=== PATIENT | female | born 1970 | race Caucasian/White ===

== ENCOUNTER 2018-04-20 10:14 | Emergency (ER) | payer OTHER ==
[~2018-04-20] VITALS: Ht 162.6 cm; Wt 72.6 kg
[~2018-04-20 10:14] MED LIST: AMBIEN5 MG; INTESTINEX680 MG PO; OSEL75CA PO; PAMELOR10 MG; PROTONIX20 MG PO; TUSSI PRES-B L120 M1 PO; ZANTAC; [UNRECOGNIZED DRUG - OTHER]
== END 2018-04-20 16:53 | disposition home or self-care (01) ==
LOC: ER 10:14
DX: R07.89 Other chest pain (principal); K31.84 Gastroparesis

== ENCOUNTER 2018-07-03 09:36 | Emergency (ER) | payer OTHER ==
[~2018-07-03] VITALS: Ht 157.5 cm; Wt 71.2 kg
[2018-07-03] MEDS ORDERED: ATACAND32 MG (10:37)
[2018-07-03] MEDS ORDERED: ZANTAC300 MG PO (10:38)
[2018-07-03] MEDS ORDERED: SYMBALTA PO (10:38)
[2018-07-03] MEDS ORDERED: REGLAN5 MG/5 ML PO (10:39)
[2018-07-03] MEDS ORDERED: INTESTINEX680 M1 PO (15:53)
== END 2018-07-03 16:31 | disposition home or self-care (01) ==
LOC: ER 09:36
DX: R19.7 Diarrhea, unspecified (principal)

== ENCOUNTER 2018-10-29 10:45 | Emergency (ER) | payer OTHER ==
[~2018-10-29] VITALS: Ht 157.5 cm; Wt 71.2 kg
[~2018-10-29 10:45] MED LIST changes: +ATACAND32 MG; +INTESTINEX680 M1 PO; +REGLAN5 MG/5 ML PO; +SYMBALTA PO; +ZANTAC300 MG PO
[2018-10-29] MEDS ORDERED: DEXILANT60 MG (11:03)
[2018-10-29] MEDS ORDERED: PEPCID AC20 MG PO (17:26)
== END 2018-10-29 17:51 | disposition home or self-care (01) ==
LOC: ER 10:45
DX: S20.212A Contusion of left front wall of thorax, initial encounter (principal); S20.211A Contusion of right front wall of thorax, initial encounter; W18.39XA Other fall on same level, initial encounter; Y93.89 Activity, other specified; Y92.89 Other specified places as the place of occurrence of the external cause; Y99.8 Other external cause status; K29.70 Gastritis, unspecified, without bleeding

== ENCOUNTER 2018-12-17 16:55 | Emergency (ER) | payer OTHER ==
[~2018-12-17] VITALS: Ht 157.5 cm; Wt 71.7 kg
[~2018-12-17 16:55] MED LIST changes: +DEXILANT60 MG; +PEPCID AC20 MG PO
[2018-12-17] MEDS ORDERED: ZOLOFT50 MG (17:12)
[2018-12-17] MEDS ORDERED: MEDROLPACK PO (21:19)
[2018-12-17] MEDS ORDERED: SKELAXIN800 MG PO (21:19)
== END 2018-12-17 21:58 | disposition home or self-care (01) ==
LOC: ER 16:55
DX: S30.0XXA Contusion of lower back and pelvis, initial encounter (principal); M54.41 Lumbago with sciatica, right side; W06.XXXA Fall from bed, initial encounter; Y93.89 Activity, other specified; Y92.092 Bedroom in other non-institutional residence as the place of occurrence of the external cause; Y99.8 Other external cause status

== ENCOUNTER 2019-11-09 18:35 | Emergency (ER) | payer OTHER ==
[~2019-11-09] VITALS: Ht 157.5 cm; Wt 72.6 kg
[~2019-11-09 18:35] MED LIST changes: +MEDROLPACK PO; +SKELAXIN800 MG PO; +ZOLOFT50 MG
[2019-11-10] MEDS ORDERED: NEURONTIN800 MG PO (02:13)
== END 2019-11-10 02:43 | disposition home or self-care (01) ==
LOC: ER 18:35
DX: M25.511 Pain in right shoulder (principal); M54.2 Cervicalgia

== ENCOUNTER 2020-07-16 20:03 | Emergency (ER) | payer OTHER ==
[~2020-07-16] VITALS: Ht 157.5 cm; Wt 72.6 kg
[~2020-07-16 20:03] MED LIST changes: +NEURONTIN800 MG PO
[2020-07-16] MEDS ORDERED: DEXILANT60 MG PO (20:17)
[2020-07-16] MEDS ORDERED: COZAAR100 MG PO (20:17)
[2020-07-16] MEDS ORDERED: PERCOCET 5-3251 EACH PO (23:39)
[2020-07-17] MEDS ORDERED: PERCOCET 5-3251 EACH PO (00:03)
== END 2020-07-17 00:35 | disposition home or self-care (01) ==
LOC: ER 20:03
DX: S93.402A Sprain of unspecified ligament of left ankle, initial encounter (principal); X50.0XXA Overexertion from strenuous movement or load, initial encounter; Y93.89 Activity, other specified; Y92.89 Other specified places as the place of occurrence of the external cause; Y99.8 Other external cause status

== ENCOUNTER 2021-05-28 13:57 | Emergency (ER) | payer OTHER ==
[~2021-05-28] VITALS: Ht 157.5 cm; Wt 72.6 kg
[~2021-05-28 13:57] MED LIST changes: +COZAAR100 MG PO; +DEXILANT60 MG PO; +PERCOCET 5-3251 EACH PO
[2021-05-28] MEDS ORDERED: PEPCID AC20 MG PO (20:04)
[2021-05-28] MEDS ORDERED: ZOFRAN8 MG PO (20:04)
[2021-05-28] MEDS ORDERED: ZITHROMAX500 MG PO (20:04)
== END 2021-05-28 21:00 | disposition home or self-care (01) ==
LOC: ER 13:57
DX: U07.1 COVID-19 (principal)

== ENCOUNTER 2021-05-31 23:21 | Emergency (ER) | payer OTHER ==
[~2021-05-31] VITALS: Ht 157.5 cm; Wt 73.5 kg
[~2021-05-31 23:21] MED LIST changes: +ZITHROMAX500 MG PO; +ZOFRAN8 MG PO
== END 2021-06-01 19:32 | disposition home or self-care (01) ==
LOC: ER 23:21
DX: J10.1 Influenza due to other identified influenza virus with other respiratory manifestations (principal); E86.0 Dehydration; K52.89 Other specified noninfective gastroenteritis and colitis; R50.9 Fever, unspecified; R11.2 Nausea with vomiting, unspecified; R10.13 Epigastric pain; N39.0 Urinary tract infection, site not specified; Z03.818 Encounter for observation for suspected exposure to other biological agents ruled out

== ENCOUNTER 2021-08-21 08:00 | Outpatient (CLI) | payer OTHER | END 2021-08-21 08:30 | disposition home or self-care (01) | LOC: PPH VACUNA 08:00 | PROVIDERS: ATTEND Emergency Medicine Pediatric Emergency Medicine | DX: Z23 Encounter for immunization (principal) ==

== ENCOUNTER 2021-09-11 09:00 | Outpatient (CLI) | payer OTHER | END 2021-09-11 09:15 | disposition home or self-care (01) | LOC: PPH VACUNA 09:00 | PROVIDERS: ATTEND Emergency Medicine Pediatric Emergency Medicine | DX: Z23 Encounter for immunization (principal) ==

== ENCOUNTER 2021-11-09 10:09 | Emergency (ER) | payer OTHER ==
[~2021-11-09] VITALS: Ht 157.5 cm; Wt 72.6 kg
== END 2021-11-09 20:15 | disposition home or self-care (01) ==
LOC: ER 10:09
DX: R10.9 Unspecified abdominal pain (principal)

== ENCOUNTER 2022-12-22 11:21 | Emergency (ER) | payer OTHER ==
[~2022-12-22] VITALS: Ht 157.5 cm; Wt 72.6 kg
== END 2022-12-22 18:25 | disposition home or self-care (01) ==
LOC: ER 11:21
DX: J01.90 Acute sinusitis, unspecified (principal); I10 Essential (primary) hypertension; Z88.8 Allergy status to other drugs, medicaments and biological substances; Z20.822 Contact with and (suspected) exposure to COVID-19

== ENCOUNTER 2023-02-12 09:22 | Emergency (ER) | payer OTHER ==
[~2023-02-12] VITALS: Ht 157.5 cm; Wt 72.6 kg
[2023-02-12] MEDS ORDERED: PROTONIX40 MG PO (09:43)
[2023-02-12] MEDS ORDERED: CYCLOBENZAPRINE10 MG PO (11:57)
[2023-02-12] MEDS ORDERED: PERCOCET 5-3251 EACH PO (11:58)
== END 2023-02-12 12:02 | disposition home or self-care (01) ==
LOC: ER 09:22
DX: S20.211A Contusion of right front wall of thorax, initial encounter (principal); W18.39XA Other fall on same level, initial encounter; Y93.89 Activity, other specified; Y92.89 Other specified places as the place of occurrence of the external cause; Z88.6 Allergy status to analgesic agent; I10 Essential (primary) hypertension; M79.7 Fibromyalgia; K58.8 Other irritable bowel syndrome

== ENCOUNTER 2023-09-08 18:04 | Emergency (ER) | payer OTHER ==
[~2023-09-08] VITALS: Ht 157.5 cm; Wt 72.6 kg
[~2023-09-08 18:04] MED LIST changes: +CYCLOBENZAPRINE10 MG PO; +PROTONIX40 MG PO
[2023-09-08] MEDS ORDERED: PLAQUNIL PO (18:50)
== END 2023-09-08 23:35 | disposition home or self-care (01) ==
LOC: ER 18:04
DX: M54.50 Low back pain, unspecified (principal); I10 Essential (primary) hypertension; Z88.6 Allergy status to analgesic agent; Z88.8 Allergy status to other drugs, medicaments and biological substances; M62.830 Muscle spasm of back

== ENCOUNTER 2024-02-11 11:12 | Emergency (ER) | payer OTHER ==
[~2024-02-11] VITALS: Ht 157.5 cm; Wt 73.5 kg
[~2024-02-11 11:12] MED LIST changes: +PLAQUNIL PO
[2024-02-11] MEDS ORDERED: HYDROCODONE/CHLORPHEN P-STIREX 5 ML ML PO STA (12:40)
[2024-02-11] MEDS ORDERED: METHYLPREDNISOLONE SOD SUCC 125 MG VIAL IV STA (12:41)
[2024-02-11] MEDS ORDERED: LEVALBUTEROL HCL 1.25 MG/3 ML SOLUTION IH SCH (12:45)
[2024-02-11 13:43] LABS: HEMATOCRIT 39.7 % (36.0-45.00); HEMOGLOBIN 13.6 g/dL (12.0-15.00); MEAN CELL VOLUME 80.8 fL (80.00-100.00); MEAN CORPUSCULAR HEMOGLOBIN 27.8 pg (27.00-32.0); MEAN CORPUSCULAR HGB CONC 34.4 g/dl (32.0-36.0); PLATELET COUNT 289 K/uL (150-450); RED BLOOD COUNT 4.91 M/uL (4.00-6.00); RED CELL DISTRIBUTION WIDTH 13.4 % (11.5-14.5)
[2024-02-11 13:45] LABS: CALCIUM 9.5 mg/dL (8.5-10.1); CREATININE SERUM 0.98 mg/dL (0.55-1.02); GFR 59.14; POTASSIUM 3.18 mEq/L (3.5-5.1)
== END 2024-02-11 16:54 | disposition home or self-care (01) ==
LOC: ER 11:13
PROVIDERS: General Practice
DX: J40 Bronchitis, not specified as acute or chronic (principal); R53.81 Other malaise; I10 Essential (primary) hypertension; Z88.8 Allergy status to other drugs, medicaments and biological substances

== ENCOUNTER 2025-02-15 20:08 | Emergency (ER) | payer OTHER ==
[~2025-02-15] VITALS: Ht 175.3 cm; Wt 72.6 kg
[2025-02-15] MEDS ORDERED: [UNRECOGNIZED DRUG - OTHER] (20:21)
[2025-02-15] MEDS ORDERED: CYCLOBENZAPRINE10 MG PO (23:29)
[2025-02-15] MEDS ORDERED: 8 HOUR650 MG PO (23:29)
[2025-02-15] MEDS ORDERED: ORPHENADRINE CITRATE 100 MG TABLET PO ONE (23:30)
[2025-02-15] MEDS ORDERED: ACETAMINOPHEN 325 MG TABLET PO ONE ×2 (23:30→23:46)
[2025-02-15] MEDS ORDERED: DEXAMETHASONE SODIUM PHOSPHATE 4 MG/ML VIAL IM ONE (23:30)
[2025-02-15] MEDS ORDERED: DEXAMETHASONE SODIUM PHOSPHATE 4 MG/ML VIAL ONE (23:45)
== END 2025-02-16 00:17 | disposition home or self-care (01) ==
LOC: ER 20:13
DX: R07.89 Other chest pain (principal); M94.0 Chondrocostal junction syndrome [Tietze]; I10 Essential (primary) hypertension; M32.8 Other forms of systemic lupus erythematosus; Z88.0 Allergy status to penicillin; Z88.8 Allergy status to other drugs, medicaments and biological substances